=== PATIENT | male | born 1935 | race Caucasian/White ===

== ENCOUNTER 2016-08-23 10:07 | Emergency (ER) | payer OTHER, MEDICARE ==
--- NOTE | 2016-08-23 10:16 | CPEKG ---
Heart Rate: 73 RR Interval: 822 P-R Interval: 176 QRSD Interval: 102 QT Interval: 408 QTC Interval: 450 P [place]: 42 QRS [place]: 52 T Wave [place]: 1 EKG Severity - NORMAL ECG - EKG Impression: SINUS RHYTHM Electronically Signed By: Yasir Stanton 23-Aug-2016 10:29:24
--- NOTE | 2016-08-23 10:16 | EDPHY ---
H & P Time Seen by Provider: 08/23/16 10:10 HPI/ROS: CHIEF COMPLAINT: Passed out HISTORY OF PRESENT ILLNESS: This 81-year-old man arrives by paramedics after having syncope at the [facility]. He did not eat this morning but drink some water which is his usual routine. He ran 3 miles on the treadmill lifted weights. He usually swims about 12 labs in the pool but did not because it was busy. He went to the hot tub and then when he got out he felt dizzy and sat down and passed out for 2 minutes. No seizure activity. Patient says he has a history of orthostatic hypotension and previous syncope and documented orthostatic vital sign changes by his primary care physician in the office. Currently says he feels fine. EMS did find him a bit diaphoretic and lightheaded with the systolic blood pressure of 70 which improved with IV fluids. REVIEW OF SYSTEMS: Eye: no change in vision ENT: no sore throat Cardiac: No chest pain. Pulmonary: no cough or SOB Abdomen: no vomiting, diarrhea, abdominal pain Musculoskeletal: no back pain Skin: no rash Neuro: no headache Constitutional: no fever : no urinary symptoms A comprehensive 10 point review of systems is otherwise negative aside from elements mentioned in the history of present illness. PAST MEDICAL HISTORY: Includes pericarditis, pulmonary embolism after travel several years ago. Social history: Recent travel to [place], and to [place] General Appearance: Alert and conversant, cooperative. Eyes: No scleral icterus. ENT, Mouth: Normal mucous membranes. No tongue laceration or abrasion. Respiratory: Normal respiratory effort, breath sounds equal, lungs are clear to auscultation. Cardiovascular: Regular rate and rhythm. Gastrointestinal: Abdomen is soft and non tender. Neurological: Alert and oriented x3. Normally conversant. Face symmetric, normal movement and sensation in all extremities. Normal [id number] and no pronator drift bilaterally. Skin: Warm and dry, no rashes. Musculoskeletal: No peripheral edema and no joint swelling. No spinal tenderness. Psychiatric: Not agitated. 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 I do think that vasovagal is the most likely cause for his syncope. My pretest probability for pulmonary embolism is low, but D-dimer ordered because of previous history of PE. 1050: D-dimer less than 0.5, pulmonary embolism unlikely. 1125: Results discussed, ambulatory in the emergency department without difficulty. Smoking Status: Never smoked Constitutional: Initial Vital Signs Temperature (C) 36.3 C 08/23/16 10:16 Heart Rate 72 08/23/16 10:16 Respiratory Rate 18 08/23/16 10:16 Blood Pressure 143/69 H 08/23/16 10:16 O2 Sat (%) 92 08/23/16 10:16 O2 Delivery Mode Room Air Allergies/Adverse Reactions: No Known Allergies Allergy (Unverified 09/10/15 07:53) Home Medications: Medication Instructions Recorded Lisinopril [Zestril 10 mg (*)] 10 mg PO DAILY 06/04/14 Atorvastatin Calcium [Lipitor 10 10 mg PO DAILY 10/28/14 mg (*)] Medical Decision Making - Diagnostics EKG Interpretation: 12-lead EKG interpreted by me; official reading is in trace master. My interpretation is sinus rhythm, rate 73, normal intervals. Differential Diagnosis: Differential diagnosis considered for syncope including but not limited to vasovagal syncope, arrhythmia, dehydration, and blood loss. - Data Points Laboratory Results: Laboratory Results 08/23/16 10:10 08/23/16 10:10 08/23/16 08/23/16 08/23/16 10:26 10:10 10:10 WBC 5.10 10^3/uL 10^3/uL (3.80-9.50) RBC 4.63 10^6/uL 10^6/uL (4.40-6.38) Hgb 15.1 g/dL g/dL (13.7-17.5) Hct 43.0 % % (40.0-51.0) MCV 92.9 fL fL (81.5-99.8) MCH 32.6 pg pg (27.9-34.1) MCHC 35.1 g/dL g/dL (32.4-36.7) RDW 11.9 % % (11.5-15.2) Plt Count 126 10^3/uL L 10^3/uL (150-400) MPV 10.1 fL fL (8.7-11.7) Neut % (Auto) 74.8 % H % (39.3-74.2) Lymph % (Auto) 15.7 % % (15.0-45.0) Swain % (Auto) 6.1 % % (4.5-13.0) Eos % (Auto) 1.6 % % (0.6-7.6) Baso % (Auto) 0.6 % % (0.3-1.7) Nucleat RBC Rel Count 0.4 % H % (0.0-0.2) Absolute Neuts (auto) 3.82 10^3/uL 10^3/uL (1.70-6.50) Absolute Lymphs (auto) 0.80 10^3/uL L 10^3/uL (1.00-3.00) Absolute Monos (auto) 0.31 10^3/uL 10^3/uL (0.30-0.80) Absolute Eos (auto) 0.08 10^3/uL 10^3/uL (0.03-0.40) Absolute Basos (auto) 0.03 10^3/uL 10^3/uL (0.02-0.10) Absolute Nucleated RBC 0.02 10^3/uL H 10^3/uL (0-0.01) Immature Gran % 1.2 % H % (0.0-1.1) Immature Gran # 0.06 10^3/uL 10^3/uL (0.00-0.10) D-Dimer 0.41 ug/mLFEU ug/mLFEU (0.00-0.50) Sodium 143 mEq/L mEq/L (134-144) Potassium 3.7 mEq/L mEq/L (3.5-5.2) Chloride 113 mEq/L H mEq/L (97-110) Carbon Dioxide 19 mEq/l L mEq/l (22-31) Anion Gap 11 mEq/L mEq/L (8-16) BUN 31 mg/dL H mg/dL (7-23) Creatinine 1.2 mg/dL mg/dL (0.7-1.3) Estimated GFR 58 Glucose 131 mg/dL H mg/dL (70-100) Calcium 9.1 mg/dL mg/dL (8.5-10.4) Troponin I < 0.012 ng/mL ng/mL (0-0.034) Medications Given: Discontinued Medications Sodium Chloride (Ns) 1,000 mls @ 0 mls/hr IV ONCE ONE; Wide Open PRN Reason: Protocol Stop: 08/23/16 10:26 Last Admin: 08/23/16 10:37 Dose: 1,000 mls Departure - Departure Disposition: Home, Routine, Self-Care Clinical Impression: Vasovagal syncope Condition: Good Instructions: Syncope (ED) Referrals: AKIKO ECHEVERRIA [Primary Care Provider] - As per Instructions
[2016-08-23 10:18] VITALS: RESP 18; TEMP 97.3
[2016-08-23] MEDS ORDERED: NS 1,000 ML IV ONE (10:25)
[2016-08-23 10:43] LABS: % IMMATURE GRANULYOCYTES 1.2 % (0.0-1.1); ABSOLUTE IMMATURE GRANULOCYTES 0.06 10^3/uL (0.00-0.10); ABSOLUTE NRBC COUNT 0.02 10^3/uL (0-0.01); ADD DIFF? NO; ADD MORPH? NO; ADD SCAN? NO; ATYPICAL LYMPHOCYTE FLAG 20 (0-99); FRAGMENT RBC FLAG 0 (0-99); HEMOGLOBIN 15.1 g/dL (13.7-17.5); LEFT SHIFT FLG 10 (0-99); LIPEMIA HEMOLYSIS FLAG 90 (0-99); MEAN CELL HEMOGLOBIN 32.6 pg (27.9-34.1); MEAN CELL HEMOGLOBIN CONCENTR. 35.1 g/dL (32.4-36.7); MEAN CELL VOLUME 92.9 fL (81.5-99.8); MEAN PLATELET VOLUME 10.1 fL (8.7-11.7); NRBC-AUTO% 0.4 % (0.0-0.2); PLATELET CLUMPS FLAG 0 (0-99); PLATELET COUNT 126 10^3/uL (150-400); RED BLOOD CELL COUNT 4.63 10^6/uL (4.40-6.38); RED CELL DISTRIBUTION WIDTH 11.9 % (11.5-15.2)
[2016-08-23 10:48] LABS: ANION GAP 11 mEq/L (8-16); CALCIUM 9.1 mg/dL (8.5-10.4); CARBON DIOXIDE 19 mEq/l (22-31); CHLORIDE 113 mEq/L (97-110); CREATININE 1.2 mg/dL (0.7-1.3); GLOMERULAR FILTRATION RATE 58; GLUCOSE 131 mg/dL (70-100); POTASSIUM 3.7 mEq/L (3.5-5.2); SODIUM 143 mEq/L (134-144)
[2016-08-23 10:58] LABS: TROPONIN I < 0.012 ng/mL (0-0.034)
[2016-08-23 11:08] VITALS: BP 141/70; PULSE 57; O2SAT 93
== END 2016-08-23 11:34 | disposition home or self-care (01) ==
LOC: EDUNIT#
DX: R55 Syncope and collapse (principal); E86.9 Volume depletion, unspecified

== ENCOUNTER 2016-08-31 08:35 | Day surgery (SDC) | payer OTHER, MEDICARE ==
[2016-08-31] MEDS ORDERED: LIDOCAINE 1% 300 MG/30 ML SDV MISC ONE (09:00)
--- NOTE | 2016-08-31 13:18 | CPIP ---
[f rep st] INVASIVE CARDIAC PROCEDURE DATE OF PROCEDURE: 08/31/2016 PROCEDURE PERFORMED: Implantation of a [employer] LINQ event recorder. INDICATION FOR PROCEDURE: Syncope. DETAILS OF PROCEDURE: The implantation site in the 4th intercostal space, just to the left of the s ternum, was marked using a surgical marker. The anterior chest was then prepped and draped in steri le fashion. The patient received subcutaneous lidocaine for local anesthesia. A small incision was made at the insertion site. The LINQ event recorder was then inserted subcutaneously. The incisio n was closed with 2 casey. COMPLICATIONS: None. CONCLUSION: Uneventful implantation of a [employer] LINQ event recorder. /[id number]/MODL
== END 2016-08-31 11:10 | disposition home or self-care (01) ==
LOC: FCATH 08:35
PROVIDERS: ATTEND Internal Medicine Interventional Cardiology
PROC: 0JH632Z Insertion of Monitoring Device into Chest Subcutaneous Tissue and Fascia, Percutaneous Approach (ICD-10-PCS; principal; 2016-08-31)
DX: R55 Syncope and collapse (principal); I25.10 Atherosclerotic heart disease of native coronary artery without angina pectoris; K21.9 Gastro-esophageal reflux disease without esophagitis; E78.5 Hyperlipidemia, unspecified; I10 Essential (primary) hypertension
CPT/HCPCS: C1764

== ENCOUNTER → 2018-01-20 | Outpatient (CLI) | payer OTHER, MEDICARE | LOC: FIMAGING 10:25 | PROVIDERS: ATTEND Internal Medicine | DX: M51.36 Other intervertebral disc degeneration, lumbar region (principal) ==

== ENCOUNTER → 2018-03-08 | Outpatient (CLI) | payer OTHER, MEDICARE ==
[~2018-03-08] MED LIST: GADOBUTROL 10 ML VIAL IVP ONE
== END ==
LOC: FIMAGING 06:00
PROVIDERS: ATTEND Physician Assistant Medical
DX: R42 Dizziness and giddiness (principal); J32.9 Chronic sinusitis, unspecified; G20 Parkinson's disease
CPT/HCPCS: 70553; A9585; 82565-PO